=== PATIENT | female | born 1940 | race Two or more races ===

== ENCOUNTER 2021-12-15 07:26 | Outpatient (CLI) | payer OTHER | END 2021-12-15 07:28 | disposition home or self-care (01) | LOC: NUCLEAR 07:26 | PROVIDERS: ATTEND Internal Medicine | DX: C50.212 Malignant neoplasm of upper-inner quadrant of left female breast (principal) | CPT/HCPCS: 78306; A9503 ==

== ENCOUNTER 2021-12-27 08:22 | Outpatient (CLI) | payer OTHER | END 2021-12-27 08:35 | disposition home or self-care (01) | LOC: TOM 08:22 | PROVIDERS: ATTEND Surgery | DX: C50.212 Malignant neoplasm of upper-inner quadrant of left female breast (principal) ==

== ENCOUNTER → 2022-04-06 08:00 | Outpatient (CLI) | payer OTHER ==
[~2022-04-06] VITALS: Ht 162.6 cm; Wt 62.6 kg
[~2022-04-06 08:00] MED LIST: ANASTROZOLE1 MG PO; ARICEPT10 MG PO; D3 + K2 DOTS 11 EACH PO; GABAPENTIN300 M2 PO; HUMALOG100 UNIT/2; HYDRALAZINE HC100 MG PO; IRBESARTAN150 MG PO; IRON325 MG PO; LANTUS SOL100 UNIT/1; SYNTHROID75 MCG PO; TOPROL XL25 M1 PO
== END | disposition home or self-care (01) ==
LOC: LAB 08:00 → ADM 15:30 → CIR.AMB 04-07 06:00 → EDSTATUS 04-07 15:30 → CIR.AMB 04-07 15:30
PROVIDERS: ATTEND Surgery
DX: D64.9 Anemia, unspecified (principal); D68.9 Coagulation defect, unspecified; N39.0 Urinary tract infection, site not specified; I10 Essential (primary) hypertension; E04.1 Nontoxic single thyroid nodule; E78.2 Mixed hyperlipidemia; Z20.822 Contact with and (suspected) exposure to COVID-19; E11.9 Type 2 diabetes mellitus without complications; C50.212 Malignant neoplasm of upper-inner quadrant of left female breast

== ENCOUNTER 2022-04-10 08:18 | Outpatient (CLI) | payer OTHER | END 2022-04-10 08:19 | disposition home or self-care (01) | LOC: LAB 08:18 | PROVIDERS: ATTEND Internal Medicine | DX: N18.4 Chronic kidney disease, stage 4 (severe) (principal); D63.1 Anemia in chronic kidney disease ==